=== PATIENT | male | born 1995 | race Caucasian/White ===

== ENCOUNTER 2018-11-23 07:07 | Day surgery (SDC) | payer OTHER ==
[2018-11-23] MEDS ORDERED: RECTICARE30 GM TOP (08:38)
[2018-11-23] MEDS ORDERED: PERCOCET 5-3251 EACH PO (08:38)
== END 2018-11-23 13:25 | disposition home or self-care (01) ==
LOC: CIR.AMB 07:07
DX: K60.3 Anal fistula (principal); K60.1 Chronic anal fissure